=== PATIENT | female | born 1970 | race Caucasian/White ===

== ENCOUNTER 2019-08-29 10:54 | Emergency (ER) | payer OTHER ==
[~2019-08-29] VITALS: Ht 162.6 cm; Wt 99.8 kg
[2019-08-29 11:19] VITALS: BP_SYST 144
--- NOTE | 2019-08-29 11:24 | NUR ---
Patient to ER bed 06 to gown for evaluation. Side rails up. Report given to Paul PRECIADO.
--- NOTE | 2019-08-29 11:29 | NUR ---
Pt AAOx4 ambulated into ED c/o non-bloody diarrhea, weakness, decreased appetite, and nausea x 1 month. Has been taking pepto-bismol with no relief. Pt also reports bilateral calf swelling and sudden loss of control of bowel movements. LAst meal was 0830 this morning, LBM was today at 1115. Denies abd pain/sob/cp/cough/congestion. No other injuries/complaints per pt/noted. Will continue to monitor.
--- NOTE | 2019-08-29 11:44 | NUR ---
ER Dr. Coffey at bedside examining patient.
[2019-08-29] MEDS ORDERED: NACL 0.9% 1,000 ML IV ONE (11:45)
[2019-08-29 12:10] LABS: BASOPHILS # (AUTO) 0.1 K/uL (0.0-0.2); BASOPHILS % (AUTO) 1.3 % (0.0-2.0); EOSINOPHILS # (AUTO) 0.4 K/uL (0.0-0.4); EOSINOPHILS % (AUTO) 6.1 % (0.0-4.0); HEMATOCRIT 41.2 % (36-48); LYMPHOCYTES # (AUTO) 1.9 K/uL (1.0-5.5); LYMPHOCYTES % (AUTO) 28.4 % (20.5-51.5); MEAN CORPUSCULAR HEMOGLOBIN 30 pg (27-31); MEAN CORPUSCULAR HGB CONC 34 % (32-36); MEAN CORPUSCULAR VOLUME 89 fL (79.0-98.0); MONOCYTES # (AUTO) 0.3 K/uL (0.0-1.0); NEUTROPHILS # (AUTO) 3.9 K/uL (1.8-7.7); NEUTROPHILS % (AUTO) 59.2 % (40.0-70.0); PLATELET COUNT (AUTO) 250 K/uL (130-430); RED BLOOD CELL COUNT(AUTO) 4.66 MIL/uL (4.2-6.2); RED CELL DISTRIBUTION WIDTH 12.8 % (9.0-15.0); WHITE BLOOD COUNT (AUTO) 6.6 K/uL (4.8-10.8)
[2019-08-29 12:20] LABS: CALCIUM 8.9 mg/dL (8.4-11.0); CREATININE 0.83 mg/dL (0.55-1.30); POTASSIUM 4.1 mmol/L (3.5-5.1)
[2019-08-29 12:25] LABS: ALBUMIN 3.7 g/dL (3.4-4.8); TOTAL BILIRUBIN 0.6 mg/dL (0.0-1.0)
[2019-08-29] MEDS ORDERED: INSULIN REGULAR, HUMAN 10 UNITS/0.1 ML INJ IVP ONE (12:45)
[2019-08-29 13:34] VITALS: BP_SYST 144
--- NOTE | 2019-08-29 13:34 | NUR ---
Patient given written and verbal discharge instructions and verbalizes understanding. ER MD Coffey discussed with patient the results and treatment provided. Patient in stable condition. ID arm band removed. IV catheter removed intact and dressing applied, no active bleeding. Rx of tramadol 50mg, lomotil 2.5mg, flagyl 500mg given. Patient educated on pain management and to follow up with PMD. Pain Scale 0/10. Opportunity for questions provided and answered. Medication side effect fact sheet provided.
== END 2019-08-29 13:34 | disposition home or self-care (01) ==
LOC: SED 10:54
DX: K52.9 Noninfective gastroenteritis and colitis, unspecified (principal)
CPT/HCPCS: 36415; 80053; 83690; 85025; 96361; 96374; 99283; J1815; J7030